=== PATIENT | male | born 1970 | race Two or more races ===

== ENCOUNTER 2016-12-05 18:31 | Emergency (ER) | payer SELFPAY ==
[2016-12-05 18:36] VITALS: TEMP 98.3; BMI 38.7
--- NOTE | 2016-12-05 19:34 | PDOC ---
History of Present Illness - General History Source: Patient Exam Limitations: No Limitations - History of Present Illness Travel History: No Initial Comments: 12/05/16 19:33 46-year-old male with no medical history presents to the emergency department complaining of epigastric discomfort since he woke up this morning. Patient states when he woke up this morning he felt a discomfort to his epigastric region. Pain is described as 4/10 dull nonradiating intermittent discomfort. Pain is exacerbated on touch and alleviated at rest. Patient states he is aware that he has a hiatal hernia for the past 8 years and believes it is giving him discomfort. He denies nausea/vomiting, fever/chills/diarrhea, chest pain, shortness of breath, flank pains, extremity numbness or tingling sensation. Timing/Duration: reports: intermittent Quality: reports: mild Abdominal Pain Onset Location: reports: epigastric Pain Radiation: reports: no radiation Activities at Onset: reports: exertion Aggravating Factors: improves with: Movement Alleviating Factors: improves with: Rest <Sabino Ballard - Last Filed: 12/05/16 22:33> <Sri Palacio - Last Filed: 12/15/16 08:31> - General Chief Complaint: Chest Pain Stated Complaint: CHEST PAIN Time Seen by Provider: 12/05/16 19:19 Past History - Past Medical History Other medical history: none - Psycho/Social/Smoking Cessation Hx Anxiety: No Suicidal Ideation: No Smoking History: Never smoked Have you smoked in the past 12 months: No Information on smoking cessation initiated: No Hx Alcohol Use: No Drug/Substance Use Hx: No Substance Use Type: None <Sabino Ballard - Last Filed: 12/05/16 22:33> <Sri Palacio - Last Filed: 12/15/16 08:31> - Past Medical History Allergies/Adverse Reactions: Allergies Allergy/AdvReac Type Severity Reaction Status Date / Time No Known Allergies Allergy Verified 12/05/16 18:33 Home Medications: Ambulatory Orders NK [No Known Home Medication] 12/05/16 Review of Systems - Review of Systems Able to Perform ROS?: Yes Comments:: 12/05/16 19:32 CONSTITUTIONAL: Absent: fever, chills, diaphoresis, generalized weakness, malaise, loss of appetite HEENT: Absent: rhinorrhea, nasal congestion, throat pain, throat swelling, difficulty swallowing, mouth swelling, ear pain, eye pain, visual Changes CARDIOVASCULAR: Absent: chest pain, loss of consciousness, palpitations, irregular heart rate, peripheral edema RESPIRATORY: Absent: cough, shortness of breath, dyspnea with exertion, orthopnea, wheezing, stridor, hemoptysis GASTROINTESTINAL: +ABD PAIN?EPIGASTRIC PAIN Absent: abdominal distension, nausea, vomiting, diarrhea, constipation, melena , hematochezia GENITOURINARY: Absent: dysuria, frequency, urgency, hesitancy, hematuria, flank pain, genital pain MUSCULOSKELETAL: Absent: myalgia, arthralgia, joint swelling SKIN: Absent: rash, itching, pallor HEMATOLOGIC/IMMUNOLOGIC: Absent: easy bleeding, easy bruising, lymphadenopathy, frequent infections ENDOCRINE: Absent: unexplained weight gain, unexplained weight loss, heat intolerance, cold intolerance NEUROLOGIC: Absent: headache, focal weakness or paresthesias, dizziness, unsteady gait, seizure, mental status changes, bladder or bowel incontinence PSYCHIATRIC: Absent: anxiety, depression, suicidal or homicidal ideation, hallucinations. Is the patient limited Slovak proficient: No <Sabino Ballard - Last Filed: 12/05/16 22:33> *Physical Exam - Vital Signs Last Vital Signs Temp Pulse Resp BP Pulse Ox 98.3 F 110 H 18 154/82 100 12/05/16 18:34 12/05/16 18:34 12/05/16 18:34 12/05/16 18:34 12/05/16 18:34 - Physical Exam Comments: 12/05/16 19:33 GENERAL: Well developed, well nourished. Awake and alert. No acute distress. HEENT: Normocephalic, atraumatic. PERRLA, EOMI. No conjunctival pallor. Sclera are non- icteric. Moist mucous membranes. Oropharynx is clear. NECK: Supple. Full ROM. No JVD. Carotid pulses 2+ and symmetric, without bruits. No thyromegaly. No lymphadenopathy. CARDIOVASCULAR: Regular rate and rhythm. No murmurs, rubs, or gallops. Distal pulses are 2+ and symmetric. PULMONARY: No evidence of respiratory distress. Lungs clear to auscultation bilaterally. No wheezing, rales or rhonchi. ABDOMINAL: Soft. Non-tender. Non-distended. No rebound or guarding. No organomegaly. Normoactive bowel sounds. MUSCULOSKELETAL Normal range of motion at all joints. No bony deformities or tenderness. No CVA tenderness. EXTREMITIES: No cyanosis. No clubbing. No edema. No calf tenderness. SKIN: Warm and dry. Normal capillary refill. No rashes. No jaundice. NEUROLOGICAL: Alert, awake, appropriate. Cranial nerves 2-12 intact. No deficits to light touch and temperature in face, upper extremities and lower extremities. No motor deficits in the in face, upper extremities and lower extremities. Normoreflexic in the upper and lower extremities. Normal speech. Toes are down- going bilaterally. Gait is normal without ataxia. PSYCHIATRIC: Cooperative. Good eye contact. Appropriate mood and affect. <Sabino Ballard - Last Filed: 12/05/16 22:33> - Vital Signs Last Vital Signs Temp Pulse Resp BP Pulse Ox 98.3 F 91 H 18 146/81 98 12/05/16 18:34 12/05/16 22:45 12/05/16 22:45 12/05/16 22:45 12/05/16 22:45 <Sri Palacio - Last Filed: 12/15/16 08:31> ED Treatment Course - LABORATORY CBC & Chemistry Diagram: 12/05/16 20:04 12/05/16 20:04 <Sabino Ballard - Last Filed: 12/05/16 22:33> - LABORATORY CBC & Chemistry Diagram: 12/05/16 20:04 12/05/16 20:04 - ADDITIONAL ORDERS Additional order review: 12/05/16 20:04 RBC 5.41 MCV 78.2 L MCHC 32.0 RDW 13.7 MPV 9.0 Neutrophils % 61.2 Lymphocytes % 25.6 Monocytes % 6.6 Eosinophils % 5.8 H Basophils % 0.8 - Medications Given in the ED: ED Medications Discontinued Medications Generic Name Dose Route Start Last Admin Trade Name Freq PRN Reason Stop Dose Admin Al Hydroxide/Mg Hydroxide 30 ml 12/05/16 19:35 12/05/16 20:05 Mylanta Suspension - PO 12/05/16 19:36 30 ml ONCE ONE Administration <Sri Palacio - Last Filed: 12/15/16 08:31> Medical Decision Making - Medical Decision Making 12/15/16 08:31 Pt presents to the ED with diffuse abdominal pain. Labs are unremarkable. Will discharge home. <Sri Palacio - Last Filed: 12/15/16 08:31> *DC/Admit/Observation/Transfer - Discharge Dispostion Admit: No <Sabino Ballard - Last Filed: 12/05/16 22:33> <Sri Palacio - Last Filed: 12/15/16 08:31> Diagnosis at time of Disposition: Atypical chest pain, Epigastric abdominal pain - Discharge Dispostion Disposition: HOME Condition at time of disposition: Stable - Referrals Referrals: John López MD [Staff Physician] - Jc Gaytan MD [Staff Physician] - - Patient Instructions Printed Discharge Instructions: DI for Atypical Chest Pain, DI for Epigastric Pain Additional Instructions: Rest Follow up with your physician and the buttermaker/lvn lpn on Thursday. Return back to the emergency department for severe/persistent or worsening symptoms.
[2016-12-05] MEDS ORDERED: MAG HYDROX/AL HYDROX/SIMETH 355 ML ORAL.SUSP PO ONE (19:35)
[2016-12-05] MEDS ORDERED: MAG HYDROX/AL HYDROX/SIMETH 30 ML UNIT-DOSE CUP ONE (19:53)
[2016-12-05 20:28] LABS: BASOPHIL 0.8 % (0-2.0); EOSINOPHIL 5.8 % (0-4.5); MEAN CELL VOLUME 78.2 fl (80-96); NEUTROPHILS 61.2 % (42.8-82.8); PLATELET COUNT 255 K/MM3 (134-434); RDW 13.7 % (11.9-15.9); WHITE BLOOD COUNT 11.4 K/mm3 (4.0-10.0)
[2016-12-05 21:15] LABS: ALBUMIN 3.6 g/dl (3.4-5.0); ANION GAP 7 (8-16); CALCIUM 8.8 mg/dL (8.5-10.1); CO2 27 mmol/L (21-32); CREATININE 0.9 mg/dL (0.7-1.3); GLUCOSE,RANDOM 111 mg/dL (74-106); SGOT/AST 17 U/L (15-37); SGPT/ALT 33 U/L (12-78)
[2016-12-05 21:17] LABS: ALK PHOS 92 U/L (45-117); BILIRUBIN,TOTAL 0.5 mg/dL (0.2-1.0); TOT PROT 7.3 g/dl (6.4-8.2)
[2016-12-05 21:21] LABS: TROPONIN I < 0.02 ng/ml (0.00-0.05)
[2016-12-05 22:46] VITALS: BP 146/81; PULSE 91
--- NOTE | 2016-12-11 11:19 | EKG ---
Test Reason : Blood Pressure : / mmHG Vent. Rate : 084 BPM Atrial Rate : 084 BPM P-R Int : 152 ms QRS Dur : 078 ms QT Int : 356 ms P-R-T Axes : 040 044 043 degrees QTc Int : 420 ms NORMAL SINUS RHYTHM NORMAL ECG WHEN COMPARED WITH ECG OF 02-FEB-2007 13:15, VENT. RATE HAS INCREASED BY [address] NO LONGER ELEVATED IN INFERIOR LEADS T WAVE AMPLITUDE HAS DECREASED IN LATERAL LEADS Confirmed by MICKI LA, BRITTNI ([id number]) on 12/11/2016 11:19:15 AM Referred By: Confirmed By:BRITTNI SWEET MD
== END 2016-12-05 22:45 | disposition home or self-care (01) ==
LOC: JER 18:31
DX: R07.89 Other chest pain (principal); R10.13 Epigastric pain
CPT/HCPCS: 36415; 71020-TC; 80053; 82550; 84484; 85025; 93005; 93010; 99283-25